=== PATIENT | male | born 1965 | race Caucasian/White ===

== ENCOUNTER → 2021-05-08 | Outpatient (CLI) | payer OTHER ==
--- NOTE | 2021-05-08 15:06 | RAD ---
Exam: US DPLX ARTR EXTREM LOWER BILAT History: Claudication, diabetic, peripheral vascular disease Comparison: None. Technique: Grayscale, color, and spectral Doppler ultrasound images of the lower extremity arteries. Findings: Peak systolic velocities (cm/s) and waveforms in the lower extremities: Right: Common femoral artery: 101, triphasic Profunda femoris artery: 53, triphasic Proximal superficial femoral artery: 103, triphasic Mid superficial femoral artery: 94, triphasic Distal superficial femoral artery: 81, triphasic Popliteal artery: 126, triphasic Posterior tibial artery: 42 proximally, 72 distally, triphasic Peroneal artery: 75, triphasic Anterior tibial artery: 43, triphasic Dorsalis pedis artery: 21, triphasic Left: Common femoral artery: 108, triphasic Profunda femoris artery: 25, biphasic Proximal superficial femoral artery: 110, triphasic Mid superficial femoral artery: 88, triphasic Distal superficial femoral artery: 105, triphasic Popliteal artery: 79 proximally, 138 in the midportion, and 175 distally, triphasic Posterior tibial artery: 37 proximally, 89 distally, triphasic Peroneal artery: 142, triphasic Anterior tibial artery: 61 triphasic Dorsalis pedis artery: 28, biphasic IMPRESSION: Mildly elevated velocity in the distal left popliteal artery without abnormal waveforms m ay represent mild stenosis. No high-grade stenosis in either lower extremities. Electronically signed by: Emy De La Cruz MD (05/08/2021 3:04 PM) [facility]
== END ==
LOC: US 12:40
PROVIDERS: ATTEND Family Medicine
DX: I73.9 Peripheral vascular disease, unspecified (principal)
CPT/HCPCS: 93925

== ENCOUNTER → 2021-05-14 | Outpatient (CLI) | payer OTHER ==
--- NOTE | 2021-05-14 16:16 | RAD ---
EXAM: Right lower extremity venous Doppler sonogram. HISTORY: Pain and swelling. TECHNIQUE: Henriquez scale and color Doppler sonographic evaluation of the right lower extremity veins wit h spectral waveform analysis was performed. FINDINGS: There is calf soft tissue edema. The peroneal veins are not well seen. There is normal colo r flow, normal compressibility and there are normal spectral waveforms in the remainder of the lower extremity veins. IMPRESSION: No Doppler evidence of lower extremity deep venous thrombosis, with limited evaluation of the calf veins. Electronically signed by: Linda Singh MD (05/14/2021 4:14 PM) [id number]
== END ==
LOC: US 16:15
PROVIDERS: ATTEND Family Medicine
DX: M79.89 Other specified soft tissue disorders (principal)
CPT/HCPCS: 93971